=== PATIENT | female | born 1995 | race African-American/Black ===

== ENCOUNTER 2021-05-28 14:07 | Emergency (ER) | payer MEDICAID ==
[~2021-05-28] VITALS: Ht 165.1 cm; Wt 66.0 kg
[2021-05-28] MEDS ORDERED: LIDOCAINE HCL/PF 1% 10 MG/ML 5ML VIAL INFIL ONE (14:45)
[2021-05-28] MEDS ORDERED: BACITRACIN ZINC OINT UDPKT TOP ONE (14:45)
[2021-05-28] MEDS ORDERED: TETANUS, DIPHTHERIA, PERTUSSIS VAC/PF 0.5ML (>10YR OLD) IM ONE (14:45)
[2021-05-28] MEDS ORDERED: LIDOCAINE HCL 1% 10 MG/ML 10ML VIAL INJ SCH (15:00)
[2021-05-28 17:12] VITALS: BP 110/59
== END 2021-05-28 17:13 | disposition home or self-care (01) ==
LOC: ER 14:07
DX: S61.211A Laceration without foreign body of left index finger without damage to nail, initial encounter (principal); W26.8XXA Contact with other sharp object(s), not elsewhere classified, initial encounter; Y93.89 Activity, other specified; Y92.018 Other place in single-family (private) house as the place of occurrence of the external cause
CPT/HCPCS: 12001; 90471; 90715; 99283; J3490

== ENCOUNTER 2024-12-28 11:05 | Emergency (ER) | payer BC, MEDICAID ==
[~2024-12-28] VITALS: Ht 167.6 cm; Wt 64.0 kg
[2024-12-28 11:18] VITALS: O2SAT 99
[2024-12-28] MEDS ORDERED: IBUP-1455 MT (12:50)
[2024-12-28] MEDS ORDERED: LIDO-53 TP (12:50)
[2024-12-28 13:00] VITALS: TEMP 36.7; O2SAT 98
[2024-12-28 13:06] VITALS: PULSE 69
[2024-12-28] MEDS: IBUPROFEN 600MG TABLET PO ONE (13:06)
[2024-12-28 13:07] VITALS: BP 99/68; RESP 16
[2024-12-28] MEDS: LIDOCAINE 5% PATCH TOP SCH (13:07)
== END 2024-12-28 13:08 | disposition home or self-care (01) ==
LOC: ER 11:05
DX: M25.512 Pain in left shoulder (principal); M75.22 Bicipital tendinitis, left shoulder
CPT/HCPCS: 99283